=== PATIENT | female | born 1970 | race Caucasian/White ===

== ENCOUNTER 2017-07-25 13:33 | Emergency (ER) | payer MEDICAID ==
[2017-07-25 13:38] VITALS: BP 153/104; TEMP 99
--- NOTE | 2017-07-25 13:49 | EDPHY ---
HPI/HX/ROS/PE/MDM Narrative: CHIEF COMPLAINT: Lip pain radiating to nose HISTORY OF PRESENT ILLNESS: The patient is a 46 y/o female complaining of lower lip pain and swelling for 9 days. There was initially pain in her lower lip that was more painful than prior canker sores. She initially had dental pain, but this has gone away. The pain then radiated to her left nose, and feel more like a pressure. Took Tylenol and mouth wash with pain medication, with mild relief of symptoms. Denies taking medications for hypertension. Denies history of personal or cardiac disease or history of familial strokes. No difficulty with speech, headache, facial numbness, extremity numbness or tingling. No history of shingles, although she had chicken pox as a child. No fever, rash, chills, chest pain, shortness of breath, palpitations, vomiting , diarrhea, urinary complaints, headache, lightheadedness. In addition she is feeling more anxious due to moving away. Admits to feeling more depressed and lonely due to this move. Denies suicidal ideation. Denies seeing a psychiatrist or therapist. REVIEW OF SYSTEMS: Aside from elements discussed in the HPI, a comprehensive 10-point review of systems was reviewed and is negative. PAST MEDICAL HISTORY: Anxiety and depression SOCIAL HISTORY: , lives in [place] VITAL SIGNS: HR: 108, BP: 153/104. Others reviewed by me. GENERAL: Anxious, well-developed, well-nourished, resting comfortably in no respiratory distress. HEENT: Atraumatic. Eyes: No icterus, no injection. No facial swelling or erythema. No sinus tenderness to percussion. Mouth: Mild swelling along lower gum line along tooth 23 and 22. Lower left lip slightly tender. No lesions seen. Moist mucous membranes. No erythema or lesions. Neck: supple with no adenopathy. Ears: Clear TM's. Normal sensation on face. NEURO: Alert and oriented, grossly nonfocal. Cranial nerves II through XII are intact. Sensation intact to light touch. SKIN: Warm and dry, no rash. PSYCHIATRIC: Normal mentation, no agitation. Portions of this note were transcribed by a medical affairs specialist. I personally performed a history, physical exam, medical decision making, and confirmed accuracy of information the transcribed note. ED Course: The patient is an anxious 46 y/o female presenting with mild swelling along her lower gum line and tenderness to her lower left lip. She also has mild swelling to tooth 23 and 24. She reports discomfort has spread onto left upper lip and along nasolabial fold. There is no sinus tenderness to percussion or neuro deficits noted. Will start on antibiotic for inflammation/ gingivitis. Advise ibuprofen. Also given ativan for anxiety. 300mg PO Clindamycin, 600mg PO Motrin, 1mg PO Ativan administered. 1420: Reassessed patient and discussed follow up with [facility] for her gingivitis. I have also referred her to [facility] for her anxiety and depression. She will be given a prescription of Clindamycin and Ativan. Return precautions provided; patient is comfortable with this plan. MDM: Differential diagnoses for the patient's symptom complex was considered including but not limited to dental abscess, shingles, hyperventilation, deep space abscess, sinusitis, anxiety. - Data Points Medications Given: Discontinued Medications Clindamycin (Clindamycin) 300 mg PO EDNOW ONE PRN Reason: Protocol Stop: 07/25/17 13:54 Last Admin: 07/25/17 13:56 Dose: 300 mg Ibuprofen (Motrin) 600 mg PO EDNOW ONE Stop: 07/25/17 13:53 Last Admin: 07/25/17 13:56 Dose: 600 mg Lorazepam (Ativan) 1 mg PO EDNOW ONE Stop: 07/25/17 13:53 Last Admin: 07/25/17 13:57 Dose: 1 mg General Time Seen by Provider: 07/25/17 13:40 Initial Vital Signs: Initial Vital Signs Temperature (C) 37.2 C 07/25/17 13:33 Heart Rate 108 H 07/25/17 13:33 Respiratory Rate 20 07/25/17 13:33 Blood Pressure 153/104 H 07/25/17 13:33 O2 Sat (%) 98 07/25/17 13:33 O2 Delivery Mode Room Air Allergies/Adverse Reactions: Penicillins Allergy (Intermediate, Verified 07/25/17 13:39) Hives Sulfa (Sulfonamide Antibiotics) Allergy (Intermediate, Verified 07/25/17 13:39) face swells Home Medications: Medication Instructions Recorded Clindamycin HCl [Clindamycin] 300 mg PO TID #21 cap 07/25/17 LORazepam [Ativan (*)] 1 mg PO Q12 PRN #8 tab 07/25/17 Departure - Departure Disposition: Home, Routine, Self-Care Clinical Impression: Gingivitis, Anxiety Condition: Good Instructions: Clindamycin (By mouth), Lorazepam (By mouth), Gingivitis (ED), Anxiety (ED) Additional Instructions: Continue using your mouthwash. Take 400-600mg ibuprofen 3 times a day with food, as needed for pain. Take Clindamycin as instructed. Make sure to finish the entire prescription even if your symptoms improve. Take Ativan as needed for anxiety. Follow up this week with a dentist, you have been referred to [facility]. Follow up with a psychiatrist or a therapist, you have been referred to [facility]. Return to the ED if you experience chest pain, shortness of breath, numbness or tingling to extremities, fever or other worsening of your condition. Referrals: [facility],. [Clinic] - As per Instructions [facility] [Outside] - As per Instructions [facility] [Outside] - As per Instructions Prescriptions: Clindamycin HCl [Clindamycin] 300 mg PO TID #21 cap LORazepam [Ativan (*)] 1 mg PO Q12 PRN #8 tab PRN Reason: Anxiety Report Scribed for: Laurel Vergara Report Scribed by: Felipa Hubbard Date of Report: 07/25/17 Time of Report: 13:41
[2017-07-25] MEDS ORDERED: LORazepam 1 MG TAB PO ONE (13:52)
[2017-07-25] MEDS ORDERED: IBUPROFEN 600 MG TAB PO ONE (13:52)
[2017-07-25] MEDS ORDERED: CLINDAMYCIN 150 MG CAP PO ONE (13:53)
[2017-07-25 14:28] VITALS: PULSE 87; RESP 18; O2SAT 97
--- NOTE | 2017-07-25 19:22 | ASDISCHSUM ---
Discharge Information Plan Status:Home with No Needs Medically Cleared to Leave: Discharge Date:07/25/2017 03:15 PM CM D/C Disposition:Home, Routine, Self-Care ADT D/C Disposition:Home, Routine, Self-Care Projected Discharge Date:07/25/2017 03:15 PM Transportation at D/C:Self Discharge Delay Reason: Follow-Up Date:07/25/2017 03:15 PM Discharge Slot: Final Diagnosis: Placement Information Patient Contact Information Contact Name:AYLEEN Relationship: Address:[address] Work Phone: City:[place] [facility] Phone: [facility]/Zip Code:[place] [address] Email: Financial Information Financial Class: Primary Plan Desc:[employer]ICA[employer]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 Patient recently re-located to [place] from [place] and is living with a friend who [place] a [place] outside of [place]. Patient has a history of anxiety and depression and states she hasn't been sleeping or eating recently. Patient provided information on [facility] including their walk-in crisis center and phone #, [facility] and other local counseling services that either take Medicaid or have a sliding scale. Patient very pleasant and appreciative; this CM strongly recommended she call today and feel free to stop by [facility] today. CM available PRN Date Signed: 07/25/2017 07:20 PM Electronically Signed By:Kathie Garcia RN Intervention Information
== END 2017-07-25 15:15 | disposition home or self-care (01) ==
DX: K05.10 Chronic gingivitis, plaque induced (principal); F41.9 Anxiety disorder, unspecified